=== PATIENT | male | born 1940 | race Caucasian/White ===

== ENCOUNTER 2018-08-12 09:35 | Day surgery (SDC) | payer MEDICARE, OTHER ==
[2018-08-12] VITALS (12 sets, daily range): BP systolic 118–161; BP diastolic 56–76
[~2018-08-12] VITALS: Ht 182.9 cm; Wt 86.3 kg
[2018-08-12] MEDS ORDERED: LORazepam 0.5 MG tablet PO PRN (10:20)
[2018-08-12] MEDS ORDERED: normal saline 1000ml 1,000 ML IV SCH (10:20)
[2018-08-12] MEDS ORDERED: diphenhydrAMINE 25mg capsule PO PRN (10:20)
[2018-08-12 10:35] LABS: BASOPHILS % (AUTO) 0.3 % (0-1); EOSINOPHILS # (AUTO) 0.4 X10'3 (0-0.9); EOSINOPHILS % (AUTO) 6.8 % (0-6); HEMATOCRIT 37.1 % (42.0-52.0); HEMOGLOBIN 12.7 g/dl (14.0-17.9); LYMPHOCYTES # (AUTO) 1.2 X10'3 (1.1-4.8); MEAN CORPUSCULAR HEMOGLOBIN 31.7 PG (27.0-31.0); MEAN CORPUSCULAR HGB CONC 34.3 % (33.0-36.5); MEAN CORPUSCULAR VOLUME 92.6 FL (78-98); MONOCYTES # (AUTO) 0.6 X10'3 (0-0.9); MONOCYTES % (AUTO) 9.6 % (2-12); NEUTROPHILS # (AUTO) 4.2 X10'3 (1.8-7.7); NEUTROPHILS % (AUTO) 65.3 % (42-75); PLATELET COUNT 177 X10'3 (140-440); RED BLOOD COUNT 4.01 X10'6 (4.70-6.10); RED CELL DISTRIBUTION WIDTH 14.8 % (11.5-14.5); WHITE BLOOD COUNT 6.4 X10'3 (4.5-11.0)
[2018-08-12 10:44] LABS: INR 1.1 INR
[2018-08-12 10:48] LABS: ALBUMIN 3.6 G/DL (3.4-5.0); ANION GAP 6 (8-16); BLOOD UREA NITROGEN 23 MG/DL (7-18); BUN/CREATININE RATIO 18.5 (5.4-32.0); CHLORIDE 103 MMOL/L (99-107); CREATININE 1.24 MG/DL (0.60-1.10); GLUCOSE 127 MG/DL (70-104); POTASSIUM 4.8 MMOL/L (3.5-5.1); SODIUM 137 MMOL/L (135-145); TOTAL CARBON DIOXIDE 28.5 MMOL/L (24-32); eGFR 56 ML/MIN
[2018-08-12] MEDS ORDERED: GABA-532 PO (10:52)
[2018-08-12] MEDS ORDERED: ASPI81TA52 PO (10:53)
[2018-08-12] MEDS ORDERED: OMEP40CA37 PO (10:53)
[2018-08-12] MEDS ORDERED: LOSA50TA21 PO (10:54)
[2018-08-12] MEDS ORDERED: PITA4TAB2 PO (10:55)
[2018-08-12] MEDS ORDERED: AMIO200T40 PO (10:56)
[2018-08-12] MEDS ORDERED: COU4T PO (10:56)
[2018-08-12] MEDS ORDERED: LIDOcaine 1% 30ml preserv. free vial ONE (11:56)
[2018-08-12] MEDS ORDERED: fentaNYL/PF 50MCG/1 ML 2ML syringe ONE (11:56)
[2018-08-12] MEDS ORDERED: midazolam 2 mg/2 ml injection ONE ×2 (11:56→13:00)
[2018-08-12] MEDS ORDERED: iohexol 350MG/ML 100ml bottle IV ONE (11:57)
[2018-08-12] MEDS ORDERED: heparin 1,000 UNITS/NS 500ml 500 ML ONE ×2 (11:57)
[2018-08-12] MEDS ORDERED: iohexol 350 MG/ML 50ML vial IV ONE ×3 (11:57→12:55)
[2018-08-12] MEDS ORDERED: HYDROcodone/acetaminophen 5mg/325mg tablet PO PRN (13:55)
[2018-08-12] MEDS ORDERED: ondansetron/PF 4mg/2ml inj IV PRN (13:55)
[2018-08-12] MEDS ORDERED: HYDROcodone/acetaminophen 10/325mg tab PO PRN (14:00)
[2018-08-12] MEDS ORDERED: OXAZEpam 15mg capsule PO PRN (14:00)
[2018-08-12] MEDS ORDERED: proCHLORperazine 10 MG/2 ml inj IV PRN (14:00)
[2018-08-13] MEDS ORDERED: pneumococcal 23-VAL P-sac vacc 25 mcg/0.5ml vial IMVAC ONE (10:00)
== END 2018-08-12 20:00 | disposition home or self-care (01) ==
LOC: SSTAY O 09:35
PROVIDERS: ATTEND Internal Medicine Cardiovascular Disease
DX: I25.810 Atherosclerosis of coronary artery bypass graft(s) without angina pectoris (principal); I10 Essential (primary) hypertension; I25.5 Ischemic cardiomyopathy; I35.1 Nonrheumatic aortic (valve) insufficiency; I45.19 Other right bundle-branch block; I44.0 Atrioventricular block, first degree; I25.2 Old myocardial infarction; E78.5 Hyperlipidemia, unspecified; J44.9 Chronic obstructive pulmonary disease, unspecified; N40.0 Benign prostatic hyperplasia without lower urinary tract symptoms; Z95.1 Presence of aortocoronary bypass graft; Z23 Encounter for immunization; Z86.74 Personal history of sudden cardiac arrest; Z87.891 Personal history of nicotine dependence; Z90.49 Acquired absence of other specified parts of digestive tract; Z93.3 Colostomy status; Z85.46 Personal history of malignant neoplasm of prostate; Z72.89 Other problems related to lifestyle; Z95.828 Presence of other vascular implants and grafts; Z79.82 Long term (current) use of aspirin; Z79.891 Long term (current) use of opiate analgesic; Z79.01 Long term (current) use of anticoagulants; Z88.1 Allergy status to other antibiotic agents; Z79.899 Other long term (current) drug therapy; Z98.890 Other specified postprocedural states; Z88.8 Allergy status to other drugs, medicaments and biological substances
CPT/HCPCS: 36415; 71046; 80048; 85025; 85610; 90732; 93005; 93459; 93567; 99152; 99153; A4315; A6257; C1769; J1644; J2250; J3010; J3490; J7030; Q9967; 93458; A4620

== ENCOUNTER 2018-09-10 11:07 | Inpatient (IN) | payer MEDICARE, OTHER ==
[~2018-09-10] VITALS: Ht 182.9 cm; Wt 86.7 kg
[2018-09-10] VITALS (21 sets, daily range): BP systolic 147–191; BP diastolic 63–87
[~2018-09-10 11:07] MED LIST: AMIO200T40 PO; ASPI81TA52 PO; COU4T PO; GABA-532 PO; LOSA50TA21 PO; OMEP40CA37 PO; PITA4TAB2 PO
[2018-09-10] MEDS ORDERED: normal saline 1000ml 1,000 ML IV PRN (11:45)
[2018-09-10] MEDS ORDERED: BRIM5DRO2 (12:04)
[2018-09-10] MEDS ORDERED: DIFL5DRO LEFTEYE (12:04)
[2018-09-10 13:15] LABS: BASOPHILS # (AUTO) 0.1 X10'3 (0-0.2); BASOPHILS % (AUTO) 0.7 % (0-1); EOSINOPHILS # (AUTO) 0.5 X10'3 (0-0.9); EOSINOPHILS % (AUTO) 6.4 % (0-6); HEMATOCRIT 42.5 % (42.0-52.0); HEMOGLOBIN 14.2 g/dl (14.0-17.9); LYMPHOCYTES # (AUTO) 1.4 X10'3 (1.1-4.8); LYMPHOCYTES % (AUTO) 19.6 % (21-51); MEAN CORPUSCULAR HEMOGLOBIN 30.9 PG (27.0-31.0); MEAN CORPUSCULAR HGB CONC 33.4 % (33.0-36.5); MEAN CORPUSCULAR VOLUME 92.4 FL (78-98); MEAN PLATELET VOLUME 6.5 FL (7.4-10.4); MONOCYTES # (AUTO) 0.6 X10'3 (0-0.9); MONOCYTES % (AUTO) 7.5 % (2-12); NEUTROPHILS # (AUTO) 4.8 X10'3 (1.8-7.7); NEUTROPHILS % (AUTO) 65.8 % (42-75); PLATELET COUNT 207 X10'3 (140-440); RED CELL DISTRIBUTION WIDTH 14.3 % (11.5-14.5); WHITE BLOOD COUNT 7.4 X10'3 (4.5-11.0)
[2018-09-10 13:17] LABS: ALBUMIN 4.3 G/DL (3.4-5.0); ANION GAP 8 (8-16); BLOOD UREA NITROGEN 20 MG/DL (7-18); BUN/CREATININE RATIO 17.9 (5.4-32.0); CALCIUM 9.6 MG/DL (8.5-10.1); CHLORIDE 102 MMOL/L (99-107); CREATININE 1.12 MG/DL (0.60-1.10); GLUCOSE 107 MG/DL (70-104); POTASSIUM 4.5 MMOL/L (3.5-5.1); SODIUM 139 MMOL/L (135-145); TOTAL CARBON DIOXIDE 29.4 MMOL/L (24-32); eGFR 63 ML/MIN
[2018-09-10 13:20] LABS: INR 1.8 INR; PROTHROMBIN TIME 18.2 SECONDS (9.0-12.0)
[2018-09-10] MEDS ORDERED: heparin 1,000 UNITS/NS 500ml 500 ML ICATH ONE (13:20)
[2018-09-10] MEDS ORDERED: LIDOcaine 1%/PF 5ML 10 MG/ML VIAL SQ ONE (13:20)
[2018-09-10] MEDS ORDERED: fentaNYL/PF 50MCG/1 ML 2ML syringe IV PRN (13:20)
[2018-09-10] MEDS ORDERED: midazolam 2 mg/2 ml injection IV PRN (13:20)
[2018-09-10] MEDS ORDERED: iohexol 300mg/ml 100ml inj. ONE (15:30)
[2018-09-10] MEDS ORDERED: heparin 1,000 UNITS/NS 500ml 500 ML ONE (15:31)
[2018-09-10] MEDS ORDERED: fentaNYL/PF 50MCG/1 ML 2ML syringe ONE (15:51)
[2018-09-10] MEDS ORDERED: ondansetron/PF 4mg/2ml inj ONE (15:51)
[2018-09-10] MEDS ORDERED: ondansetron/PF 4mg/2ml inj IV ONE (16:00)
[2018-09-10] MEDS: normal saline 1000ml 1,000 ML IV SCH (17:43)
[2018-09-10] MEDS ORDERED: ceFAZolin 2gm in dextrose, iso 100 ML IV ONE (20:00)
[2018-09-11] VITALS (16 sets, daily range): BP systolic 123–181; BP diastolic 44–71
[2018-09-11] MEDS: normal saline 1000ml 1,000 ML IV SCH ×2 (05:05→15:22)
[2018-09-11 08:29] LABS: BASOPHILS % (AUTO) 0.4 % (0-1); EOSINOPHILS # (AUTO) 0.2 X10'3 (0-0.9); EOSINOPHILS % (AUTO) 3.9 % (0-6); LYMPHOCYTES # (AUTO) 0.9 X10'3 (1.1-4.8); LYMPHOCYTES % (AUTO) 15.1 % (21-51); MEAN CORPUSCULAR HEMOGLOBIN 31.5 PG (27.0-31.0); MEAN CORPUSCULAR HGB CONC 33.9 % (33.0-36.5); MEAN PLATELET VOLUME 6.3 FL (7.4-10.4); MONOCYTES # (AUTO) 0.6 X10'3 (0-0.9); MONOCYTES % (AUTO) 9.4 % (2-12); NEUTROPHILS # (AUTO) 4.6 X10'3 (1.8-7.7); NEUTROPHILS % (AUTO) 71.2 % (42-75); PRE OP HEMATOCRIT 37.1 % (42.0-52.0); PRE OP HEMOGLOBIN 12.6 g/dL (14.0-17.9); PRE OP PLATELET COUNT 161 X10'3 (140-440); RED BLOOD COUNT 3.99 X10'6 (4.70-6.10); RED CELL DISTRIBUTION WIDTH 14.8 % (11.5-14.5)
[2018-09-11 08:39] LABS: ALBUMIN 3.3 G/DL (3.4-5.0); ALKALINE PHOSPHATASE 100 IU/L (46-116); BLOOD UREA NITROGEN 14 MG/DL (7-18); BUN/CREATININE RATIO 13.9 (5.4-32.0); CALCIUM 8.8 MG/DL (8.5-10.1); CHLORIDE 105 MMOL/L (99-107); CREATININE 1.01 MG/DL (0.60-1.10); PRE OP ALT 23 U/L (30-65); PRE OP ANION GAP 6 (8-16); PRE OP AST 13 U/L (10-37); PRE OP BILIRUB, TOTAL 0.4 MG/DL (0.0-1.0); PRE OP GLUCOSE 86 MG/DL (70-104); PRE OP POTASSIUM 4.4 MMOL/L (3.4-5.1); PRE OP SODIUM 140 MMOL/L (135-145); TOTAL CARBON DIOXIDE 28.9 MMOL/L (24-32); TOTAL PROTEIN 6.7 G/DL (6.4-8.2); eGFR 71 ML/MIN
[2018-09-11 08:51] LABS: INR 1.3 INR; PROTHROMBIN TIME 13.8 SECONDS (9.0-12.0)
[2018-09-11] MEDS ORDERED: sevoflurane 250ml liquid IH ONE ×2 (09:00→12:45)
[2018-09-11] MEDS ORDERED: ceFAZolin 1000mg inj ONE ×3 (09:58→13:36)
[2018-09-11] MEDS ORDERED: furosemide 20 MG/2 ML vial ONE (12:45)
[2018-09-11] MEDS ORDERED: fentaNYL/PF 50MCG/1 ML 2ML syringe ONE ×2 (12:47→13:52)
[2018-09-11] MEDS ORDERED: propofol inj 20 ML IV ONE (13:36)
[2018-09-11] MEDS ORDERED: rocuronium 10mg/ml inj IV ONE (13:36)
[2018-09-11] MEDS ORDERED: LIDOcaine 2% (20mg/ml) 5ml vial ONE (13:36)
[2018-09-11] MEDS: heparin 10,000 units/1 ML INJ ONE ×2 (14:11→14:13)
[2018-09-11] MEDS ORDERED: ondansetron/PF 4mg/2ml inj IV PRN (15:20)
[2018-09-11] MEDS ORDERED: HYDROmorphone inj. 0.5 MG/0.5 ML DISP.SYRIN IV PRN ×2 (15:20→20:45)
[2018-09-11] MEDS ORDERED: morphine 4 MG/ML inj SYRINge IV PRN (15:20)
[2018-09-11] MEDS ORDERED: ringers solution, lacted 1,000 ML IV SCH (15:20)
[2018-09-11] MEDS ORDERED: albumin (Human) 5% 250ml 250 ML IV ONE (16:56)
[2018-09-11] MEDS ORDERED: protamine sulfate 10mg/ml inj. ONE (17:42)
[2018-09-11 17:51] LABS: INR 1.7 INR; PROTHROMBIN TIME 16.9 SECONDS (9.0-12.0)
[2018-09-11 17:56] LABS: PARTIAL THROMBOPLASTIN TIME > 153 SECONDS (22-32)
[2018-09-11] MEDS ORDERED: HYDROmorphone 1 mg/ml syringe IV PRN (18:40)
[2018-09-11] MEDS ORDERED: ePHEDrine 50MG/ML INJ. ONE (18:47)
[2018-09-11] MEDS ORDERED: neostigmine methylsulfate 1 MG/ML 10ml vial ONE (18:47)
[2018-09-11] MEDS ORDERED: glycopyrrolate 0.2mg/ml inj ONE (18:47)
[2018-09-11] MEDS ORDERED: ondansetron/PF 4mg/2ml inj ONE (18:47)
[2018-09-11] MEDS ORDERED: dexamethasone sod phosphate 4mg/ml inj. ONE (18:48)
[2018-09-11] MEDS ORDERED: heparin 1,000unit/ml 10ml vial 10 ML ONE (18:48)
[2018-09-11 19:04] LABS: BASOPHILS % (AUTO) 0.2 % (0-1); EOSINOPHILS # (AUTO) 0.1 X10'3 (0-0.9); EOSINOPHILS % (AUTO) 0.6 % (0-6); HEMATOCRIT 29.4 % (42.0-52.0); HEMOGLOBIN 10.2 g/dl (14.0-17.9); LYMPHOCYTES # (AUTO) 0.7 X10'3 (1.1-4.8); LYMPHOCYTES % (AUTO) 7.4 % (21-51); MEAN CORPUSCULAR HEMOGLOBIN 32.2 PG (27.0-31.0); MEAN CORPUSCULAR HGB CONC 34.7 % (33.0-36.5); MEAN CORPUSCULAR VOLUME 92.9 FL (78-98); MEAN PLATELET VOLUME 6.5 FL (7.4-10.4); MONOCYTES # (AUTO) 0.1 X10'3 (0-0.9); MONOCYTES % (AUTO) 1.4 % (2-12); NEUTROPHILS # (AUTO) 8.2 X10'3 (1.8-7.7); NEUTROPHILS % (AUTO) 90.4 % (42-75); PLATELET COUNT 142 X10'3 (140-440); RED BLOOD COUNT 3.16 X10'6 (4.70-6.10); RED CELL DISTRIBUTION WIDTH 14.4 % (11.5-14.5); WHITE BLOOD COUNT 9.1 X10'3 (4.5-11.0)
[2018-09-11 19:23] LABS: ALANINE AMINOTRANSFERASE 19 U/L (12-78); ALBUMIN 2.6 G/DL (3.4-5.0); ALBUMIN/GLOBULIN RATIO 1.1 (1.1-1.5); ALKALINE PHOSPHATASE 72 IU/L (46-116); ANION GAP 9 (8-16); ASPARTATE AMINO TRANSFERASE 14 U/L (10-37); BILIRUBIN,TOTAL 0.4 MG/DL (0.1-1.0); BLOOD UREA NITROGEN 15 MG/DL (7-18); BUN/CREATININE RATIO 17.2 (5.4-32.0); CALCIUM 7.6 MG/DL (8.5-10.1); CHLORIDE 108 MMOL/L (99-107); CREATININE 0.87 MG/DL (0.60-1.10); GLUCOSE 171 MG/DL (70-104); POTASSIUM 4.3 MMOL/L (3.5-5.1); SODIUM 140 MMOL/L (135-145); TOTAL CARBON DIOXIDE 23.5 MMOL/L (24-32); eGFR 85 ML/MIN
[2018-09-11 19:26] LABS: INR 1.4 INR; PARTIAL THROMBOPLASTIN TIME 33 SECONDS (22-32); PROTHROMBIN TIME 14.7 SECONDS (9.0-12.0)
[2018-09-11] MEDS: potassium CL 20mEq in D5-1/2NS 1,000 ML IV SCH (19:52)
[2018-09-11] MEDS ORDERED: DIFLUPREDNATE 0.05% LEFTEYE SCH (20:00)
[2018-09-11] MEDS ORDERED: OPTH LEFTEYE SCH (20:00)
[2018-09-11] MEDS: ceFOXitin 2 GM ADDvantage bag 100 ML IV SCH (20:29)
[2018-09-11] MEDS: OPTH LEFTEYE SCH ×2 (20:35)
[2018-09-11] MEDS: COMBIGAN LEFTEYE SCH (20:35)
[2018-09-11] MEDS: DUREZOL 0.05% LEFTEYE SCH (20:35)
[2018-09-11] MEDS: gabapentin 300mg capsule PO SCH (20:43)
[2018-09-11 21:13] LABS: MAGNESIUM 1.6 MG/DL (1.5-2.4)
[2018-09-11] MEDS: hydrALAZINE 20mg/ml inj. IV PRN ×2 (21:44→22:45)
[2018-09-11] MEDS ORDERED: HYDROmorphone 1 mg/ml syringe ONE (23:46)
[2018-09-12] VITALS (23 sets, daily range): BP systolic 101–163; BP diastolic 36–80
[2018-09-12] MEDS: HYDROmorphone 1 mg/ml syringe IV PRN ×4 (00:03→17:41)
[2018-09-12] MEDS: ceFOXitin 2 GM ADDvantage bag 100 ML IV SCH ×2 (02:12→08:02)
[2018-09-12 02:47] LABS: ALBUMIN 2.8 G/DL (3.4-5.0); ANION GAP 8 (8-16); BLOOD UREA NITROGEN 17 MG/DL (7-18); CALCIUM 7.8 MG/DL (8.5-10.1); CHLORIDE 108 MMOL/L (99-107); CREATININE 1.06 MG/DL (0.60-1.10); GLUCOSE 219 MG/DL (70-104); POTASSIUM 4.4 MMOL/L (3.5-5.1); SODIUM 141 MMOL/L (135-145); TOTAL CARBON DIOXIDE 25.5 MMOL/L (24-32); eGFR 68 ML/MIN
[2018-09-12 02:48] LABS: BASOPHILS % (AUTO) 0.2 % (0-1); EOSINOPHILS % (AUTO) 0 % (0-6); HEMATOCRIT 28.2 % (42.0-52.0); HEMOGLOBIN 9.9 g/dl (14.0-17.9); LYMPHOCYTES # (AUTO) 0.5 X10'3 (1.1-4.8); LYMPHOCYTES % (AUTO) 5.7 % (21-51); MEAN CORPUSCULAR HEMOGLOBIN 32.5 PG (27.0-31.0); MEAN CORPUSCULAR VOLUME 92.8 FL (78-98); MEAN PLATELET VOLUME 6.5 FL (7.4-10.4); MONOCYTES # (AUTO) 0.8 X10'3 (0-0.9); MONOCYTES % (AUTO) 8.1 % (2-12); NEUTROPHILS # (AUTO) 8.3 X10'3 (1.8-7.7); PLATELET COUNT 159 X10'3 (140-440); RED BLOOD COUNT 3.04 X10'6 (4.70-6.10); RED CELL DISTRIBUTION WIDTH 14.5 % (11.5-14.5); WHITE BLOOD COUNT 9.6 X10'3 (4.5-11.0)
[2018-09-12 02:54] LABS: INR 1.3 INR
[2018-09-12] MEDS: ondansetron/PF 4mg/2ml inj IV PRN ×2 (03:16→21:00)
[2018-09-12] MEDS: normal saline 1000ml 1,000 ML IV SCH ×2 (04:42→17:28)
[2018-09-12] MEDS: potassium CL 20mEq in D5-1/2NS 1,000 ML IV SCH ×3 (05:19→19:57)
[2018-09-12] MEDS ORDERED: warfarin 4mg tablet PO SCH (08:00)
[2018-09-12] MEDS: clopidogrel 75mg tablet PO SCH (08:02)
[2018-09-12] MEDS: COMBIGAN LEFTEYE SCH ×2 (08:02→19:54)
[2018-09-12] MEDS: gabapentin 300mg capsule PO SCH ×2 (08:02→19:56)
[2018-09-12] MEDS: OPTH LEFTEYE SCH ×4 (08:02→19:58)
[2018-09-12] MEDS: DUREZOL 0.05% LEFTEYE SCH ×2 (08:02→19:58)
[2018-09-12] MEDS: amiodarone 200mg tablet PO SCH (08:02)
[2018-09-12 13:46] LABS: ISTAT ANION GAP 11 (8-12); ISTAT BUN 13 mg/dL (6-19); ISTAT CL 106 mmol/L (99-107); ISTAT CREATININE 0.8 mg/dL (0.8-1.3); ISTAT GLUCOSE 118 mg/dL (70-104); ISTAT HGB 8.5 g/dl (14.0-18.0); ISTAT Hct 25 %PCV (42-52); ISTAT IONIZED CALCIUM 1.17 mmol/L (1.03-1.32); ISTAT K 4.2 mmol/L (3.5-5.1); ISTAT NA 140 mmol/L (135-145); ISTAT TOTAL CO2 23 mmol/L (24-32); ISTAT eGFR > 90 ML/MIN; POC BUN/CREATININE RATIO 16.3 (5.4-32.0)
[2018-09-12] MEDS: warfarin 4mg tablet PO SCH (19:56)
[2018-09-12] MEDS: HYDROcodone/acetaminophen 10/325mg tab PO PRN (21:00)
[2018-09-12] MEDS: acetaminophen 325mg tablet PO PRN (23:24)
[2018-09-13] VITALS (16 sets, daily range): BP systolic 111–178; BP diastolic 36–94
[2018-09-13 02:38] LABS: BASOPHILS % (AUTO) 0.1 % (0-1); EOSINOPHILS % (AUTO) 0.3 % (0-6); HEMATOCRIT 22.6 % (42.0-52.0); HEMOGLOBIN 7.6 g/dl (14.0-17.9); LYMPHOCYTES # (AUTO) 0.8 X10'3 (1.1-4.8); LYMPHOCYTES % (AUTO) 11.1 % (21-51); MEAN CORPUSCULAR HEMOGLOBIN 31.2 PG (27.0-31.0); MEAN CORPUSCULAR HGB CONC 33.4 % (33.0-36.5); MEAN CORPUSCULAR VOLUME 93.4 FL (78-98); MEAN PLATELET VOLUME 6.2 FL (7.4-10.4); MONOCYTES # (AUTO) 1.1 X10'3 (0-0.9); MONOCYTES % (AUTO) 14.5 % (2-12); NEUTROPHILS # (AUTO) 5.7 X10'3 (1.8-7.7); PLATELET COUNT 122 X10'3 (140-440); RED BLOOD COUNT 2.42 X10'6 (4.70-6.10); RED CELL DISTRIBUTION WIDTH 15.6 % (11.5-14.5); WHITE BLOOD COUNT 7.6 X10'3 (4.5-11.0)
[2018-09-13 02:46] LABS: ALBUMIN 2.4 G/DL (3.4-5.0); ANION GAP 6 (8-16); BLOOD UREA NITROGEN 14 MG/DL (7-18); BUN/CREATININE RATIO 13.5 (5.4-32.0); CALCIUM 7.6 MG/DL (8.5-10.1); CHLORIDE 106 MMOL/L (99-107); CREATININE 1.04 MG/DL (0.60-1.10); GLUCOSE 165 MG/DL (70-104); POTASSIUM 4.7 MMOL/L (3.5-5.1); SODIUM 138 MMOL/L (135-145); TOTAL CARBON DIOXIDE 26.3 MMOL/L (24-32); eGFR 69 ML/MIN
[2018-09-13] MEDS: potassium CL 20mEq in D5-1/2NS 1,000 ML IV SCH (02:52)
[2018-09-13] MEDS: HYDROcodone/acetaminophen 10/325mg tab PO PRN ×3 (02:53→20:01)
[2018-09-13 03:00] LABS: INR 1.3 INR; PROTHROMBIN TIME 13.6 SECONDS (9.0-12.0)
[2018-09-13] MEDS: normal saline 1000ml 1,000 ML IV SCH (07:22)
[2018-09-13] MEDS: gabapentin 300mg capsule PO SCH ×2 (08:26→20:00)
[2018-09-13] MEDS: clopidogrel 75mg tablet PO SCH (08:26)
[2018-09-13] MEDS: amiodarone 200mg tablet PO SCH (08:27)
[2018-09-13] MEDS: DUREZOL 0.05% LEFTEYE SCH ×2 (08:31→19:59)
[2018-09-13] MEDS: COMBIGAN LEFTEYE SCH ×2 (08:31→19:59)
[2018-09-13] MEDS: OPTH LEFTEYE SCH ×4 (08:31→19:59)
[2018-09-13] MEDS: ondansetron/PF 4mg/2ml inj IV PRN ×2 (11:11→20:00)
[2018-09-13] MEDS: warfarin 4mg tablet PO SCH (20:00)
[2018-09-14] MEDS: HYDROcodone/acetaminophen 10/325mg tab PO PRN ×2 (00:11→18:21)
[2018-09-14 05:16] LABS: INR 1.3 INR; PROTHROMBIN TIME 13.2 SECONDS (9.0-12.0)
[2018-09-14 05:19] LABS: BASOPHILS % (AUTO) 0.3 % (0-1); EOSINOPHILS # (AUTO) 0.2 X10'3 (0-0.9); EOSINOPHILS % (AUTO) 2.8 % (0-6); HEMATOCRIT 22.5 % (42.0-52.0); HEMOGLOBIN 7.6 g/dl (14.0-17.9); LYMPHOCYTES # (AUTO) 1.1 X10'3 (1.1-4.8); LYMPHOCYTES % (AUTO) 14.2 % (21-51); MEAN CORPUSCULAR HEMOGLOBIN 31.5 PG (27.0-31.0); MEAN CORPUSCULAR HGB CONC 33.8 % (33.0-36.5); MEAN CORPUSCULAR VOLUME 93.1 FL (78-98); MEAN PLATELET VOLUME 6.6 FL (7.4-10.4); MONOCYTES # (AUTO) 0.8 X10'3 (0-0.9); MONOCYTES % (AUTO) 10.5 % (2-12); NEUTROPHILS # (AUTO) 5.5 X10'3 (1.8-7.7); NEUTROPHILS % (AUTO) 72.2 % (42-75); PLATELET COUNT 142 X10'3 (140-440); RED BLOOD COUNT 2.42 X10'6 (4.70-6.10); RED CELL DISTRIBUTION WIDTH 15.3 % (11.5-14.5); WHITE BLOOD COUNT 7.6 X10'3 (4.5-11.0)
[2018-09-14 05:28] LABS: ALBUMIN 2.6 G/DL (3.4-5.0); ANION GAP 6 (8-16); BLOOD UREA NITROGEN 13 MG/DL (7-18); BUN/CREATININE RATIO 11.4 (5.4-32.0); CALCIUM 8.2 MG/DL (8.5-10.1); CHLORIDE 103 MMOL/L (99-107); CREATININE 1.14 MG/DL (0.60-1.10); GLUCOSE 131 MG/DL (70-104); POTASSIUM 4.6 MMOL/L (3.5-5.1); SODIUM 135 MMOL/L (135-145); TOTAL CARBON DIOXIDE 26.1 MMOL/L (24-32); eGFR 62 ML/MIN
[2018-09-14 07:04] VITALS: BP 134/61
[2018-09-14] MEDS: clopidogrel 75mg tablet PO SCH (08:18)
[2018-09-14] MEDS: amiodarone 200mg tablet PO SCH (08:18)
[2018-09-14] MEDS: gabapentin 300mg capsule PO SCH ×2 (08:18→20:48)
[2018-09-14] MEDS: COMBIGAN LEFTEYE SCH ×2 (08:19→20:47)
[2018-09-14] MEDS: OPTH LEFTEYE SCH ×4 (08:19→20:47)
[2018-09-14] MEDS: DUREZOL 0.05% LEFTEYE SCH ×2 (08:20→20:47)
[2018-09-14] MEDS: ondansetron/PF 4mg/2ml inj IV PRN (09:39)
[2018-09-14 11:00] VITALS: BP 177/61
[2018-09-14] MEDS: hydrALAZINE 20mg/ml inj. IV PRN (12:43)
[2018-09-14] MEDS ORDERED: magnesium citrate 296ml oral solution PO ONE (16:55)
[2018-09-14 20:00] VITALS: BP 132/51
[2018-09-14] MEDS ORDERED: magnesium hydroxide 30ml (MOM) UD suspension PO ONE (20:00)
[2018-09-14] MEDS: warfarin 4mg tablet PO SCH (20:48)
[2018-09-14] MEDS: ceFOXitin 2 GM ADDvantage bag 100 ML IV SCH (20:48)
[2018-09-14 22:19] LABS: CLARITY,URINE CLEAR (Clear); COLOR,URINE YELLOW (Yellow); GLUCOSE, URINE NEGATIVE (Neg); KETONES,URINE NEGATIVE (Neg); LEUKOCYTE ESTERASE ,URINE NEGATIVE (Neg); NITRITES, URINE NEGATIVE (Neg); OCCULT BLOOD,URINE TRACE-LYSED (Neg); PROTEIN,URINE TRACE mg/dl (Neg); UROBILINOGEN,URINE 0.2 E.U/dL (0.2-1.0)
[2018-09-14 22:28] LABS: UA COLLECTION TYPE VOIDED
[2018-09-14 22:29] LABS: BACTERIA,URINE NONE SEEN /HPF (Neg); RBC,URINE NONE SEEN /HPF (0-2); SQUAMOUS EPITHELIAL CELL,UR NONE SEEN /LPF (FEW); WBC,URINE NONE SEEN /HPF (0-4)
[2018-09-14 23:30] VITALS: BP 117/54
[2018-09-15] MEDS: HYDROcodone/acetaminophen 10/325mg tab PO PRN ×3 (00:06→21:22)
[2018-09-15] MEDS: ceFOXitin 2 GM ADDvantage bag 100 ML IV SCH ×2 (02:02→08:25)
[2018-09-15 05:37] LABS: BASOPHILS % (AUTO) 0.5 % (0-1); EOSINOPHILS # (AUTO) 0.2 X10'3 (0-0.9); HEMOGLOBIN 7.4 g/dl (14.0-17.9); LYMPHOCYTES # (AUTO) 1.3 X10'3 (1.1-4.8); LYMPHOCYTES % (AUTO) 17.4 % (21-51); MEAN CORPUSCULAR HEMOGLOBIN 31.7 PG (27.0-31.0); MEAN CORPUSCULAR HGB CONC 34.2 % (33.0-36.5); MEAN CORPUSCULAR VOLUME 92.9 FL (78-98); MEAN PLATELET VOLUME 6.8 FL (7.4-10.4); MONOCYTES # (AUTO) 0.8 X10'3 (0-0.9); MONOCYTES % (AUTO) 10.7 % (2-12); NEUTROPHILS # (AUTO) 5.2 X10'3 (1.8-7.7); NEUTROPHILS % (AUTO) 68.4 % (42-75); PLATELET COUNT 146 X10'3 (140-440); RED BLOOD COUNT 2.32 X10'6 (4.70-6.10); RED CELL DISTRIBUTION WIDTH 15.2 % (11.5-14.5); WHITE BLOOD COUNT 7.6 X10'3 (4.5-11.0)
[2018-09-15 05:53] LABS: INR 1.2 INR; PROTHROMBIN TIME 12.5 SECONDS (9.0-12.0)
[2018-09-15 06:01] LABS: HEMATOCRIT 21.5 % (42.0-52.0)
[2018-09-15 06:06] LABS: ALBUMIN 2.3 G/DL (3.4-5.0); ANION GAP 6 (8-16); BLOOD UREA NITROGEN 16 MG/DL (7-18); BUN/CREATININE RATIO 13.6 (5.4-32.0); CHLORIDE 103 MMOL/L (99-107); CREATININE 1.18 MG/DL (0.60-1.10); GLUCOSE 120 MG/DL (70-104); POTASSIUM 4.9 MMOL/L (3.5-5.1); SODIUM 136 MMOL/L (135-145); TOTAL CARBON DIOXIDE 27.3 MMOL/L (24-32); eGFR 60 ML/MIN
[2018-09-15 07:20] VITALS: BP 152/61
[2018-09-15] MEDS: clopidogrel 75mg tablet PO SCH (08:23)
[2018-09-15] MEDS: gabapentin 300mg capsule PO SCH ×2 (08:23→20:41)
[2018-09-15] MEDS: amiodarone 200mg tablet PO SCH (08:23)
[2018-09-15] MEDS: COMBIGAN LEFTEYE SCH ×2 (08:24→20:40)
[2018-09-15] MEDS: OPTH LEFTEYE SCH ×4 (08:24→20:40)
[2018-09-15] MEDS: DUREZOL 0.05% LEFTEYE SCH ×2 (08:24→20:40)
[2018-09-15 11:39] VITALS: BP 150/70
[2018-09-15] MEDS: ferrous sulfate 325mg tablet PO SCH ×2 (14:48→20:41)
[2018-09-15] MEDS: ondansetron/PF 4mg/2ml inj IV PRN ×2 (16:03→21:02)
[2018-09-15 18:50] VITALS: BP 163/61
[2018-09-15] MEDS: warfarin 4mg tablet PO SCH (20:48)
[2018-09-16] VITALS: BP 130/59
[2018-09-16] MEDS: ondansetron/PF 4mg/2ml inj IV PRN ×2 (01:12→13:37)
[2018-09-16 06:27] LABS: ALBUMIN 2.2 G/DL (3.4-5.0); ANION GAP 6 (8-16); BLOOD UREA NITROGEN 16 MG/DL (7-18); CALCIUM 7.8 MG/DL (8.5-10.1); CHLORIDE 98 MMOL/L (99-107); CREATININE 0.94 MG/DL (0.60-1.10); GLUCOSE 130 MG/DL (70-104); POTASSIUM 4.4 MMOL/L (3.5-5.1); SODIUM 132 MMOL/L (135-145); TOTAL CARBON DIOXIDE 28.5 MMOL/L (24-32); eGFR 78 ML/MIN
[2018-09-16 06:28] LABS: BASOPHILS % (AUTO) 0.5 % (0-1); EOSINOPHILS # (AUTO) 0.6 X10'3 (0-0.9); EOSINOPHILS % (AUTO) 9.8 % (0-6); LYMPHOCYTES # (AUTO) 1.1 X10'3 (1.1-4.8); LYMPHOCYTES % (AUTO) 17.4 % (21-51); MEAN CORPUSCULAR HEMOGLOBIN 31.7 PG (27.0-31.0); MEAN CORPUSCULAR HGB CONC 33.9 % (33.0-36.5); MEAN CORPUSCULAR VOLUME 93.4 FL (78-98); MONOCYTES # (AUTO) 0.7 X10'3 (0-0.9); MONOCYTES % (AUTO) 10.6 % (2-12); NEUTROPHILS # (AUTO) 3.9 X10'3 (1.8-7.7); NEUTROPHILS % (AUTO) 61.7 % (42-75); PLATELET COUNT 182 X10'3 (140-440); RED CELL DISTRIBUTION WIDTH 15.1 % (11.5-14.5); WHITE BLOOD COUNT 6.3 X10'3 (4.5-11.0)
[2018-09-16 06:33] LABS: HEMATOCRIT 20.5 % (42.0-52.0)
[2018-09-16 06:36] LABS: INR 1.3 INR; PROTHROMBIN TIME 13.2 SECONDS (9.0-12.0)
[2018-09-16 07:30] VITALS: BP 163/73
[2018-09-16] MEDS: DUREZOL 0.05% LEFTEYE SCH ×2 (08:45→19:41)
[2018-09-16] MEDS: OPTH LEFTEYE SCH ×4 (08:45→19:41)
[2018-09-16] MEDS: COMBIGAN LEFTEYE SCH ×2 (08:45→19:25)
[2018-09-16] MEDS: ferrous sulfate 325mg tablet PO SCH ×2 (08:46→19:25)
[2018-09-16] MEDS: amiodarone 200mg tablet PO SCH (08:46)
[2018-09-16] MEDS: gabapentin 300mg capsule PO SCH ×2 (08:47→19:24)
[2018-09-16] MEDS: clopidogrel 75mg tablet PO SCH (08:47)
[2018-09-16] MEDS: HYDROcodone/acetaminophen 10/325mg tab PO PRN ×3 (08:49→14:43)
[2018-09-16 11:00] VITALS: BP 149/61
[2018-09-16 19:30] VITALS: BP 179/77
[2018-09-16] MEDS: acetaminophen 325mg tablet PO PRN (19:39)
[2018-09-16] MEDS: warfarin 4mg tablet PO SCH (19:40)
[2018-09-16 23:30] VITALS: BP 154/65
[2018-09-17] MEDS: acetaminophen 325mg tablet PO PRN ×3 (02:05→21:16)
[2018-09-17 06:20] LABS: INR 1.3 INR; PROTHROMBIN TIME 13.4 SECONDS (9.0-12.0)
[2018-09-17 07:01] VITALS: BP 157/71
[2018-09-17] MEDS: OPTH LEFTEYE SCH ×4 (07:33→20:31)
[2018-09-17] MEDS: COMBIGAN LEFTEYE SCH ×2 (07:33→20:22)
[2018-09-17] MEDS: amiodarone 200mg tablet PO SCH (07:34)
[2018-09-17] MEDS: gabapentin 300mg capsule PO SCH ×2 (07:35→20:19)
[2018-09-17] MEDS: ferrous sulfate 325mg tablet PO SCH ×2 (07:35→20:19)
[2018-09-17] MEDS: clopidogrel 75mg tablet PO SCH (07:36)
[2018-09-17] MEDS: DUREZOL 0.05% LEFTEYE SCH ×2 (08:00→20:31)
[2018-09-17 11:00] VITALS: BP 140/57
[2018-09-17 12:29] VITALS: BP 159/71
[2018-09-17 18:30] VITALS: BP 152/54
[2018-09-17] MEDS: warfarin 4mg tablet PO SCH (20:19)
[2018-09-18] VITALS: BP 131/52
[2018-09-18 06:54] LABS: INR 1.5 INR
[2018-09-18] MEDS: acetaminophen 325mg tablet PO PRN (07:22)
[2018-09-18 08:00] VITALS: BP 144/67
[2018-09-18] MEDS: ferrous sulfate 325mg tablet PO SCH (08:49)
[2018-09-18] MEDS: gabapentin 300mg capsule PO SCH ×2 (08:49→19:19)
[2018-09-18] MEDS: amiodarone 200mg tablet PO SCH (08:49)
[2018-09-18] MEDS: DUREZOL 0.05% LEFTEYE SCH (08:50)
[2018-09-18] MEDS: OPTH LEFTEYE SCH ×2 (08:50→08:58)
[2018-09-18] MEDS: COMBIGAN LEFTEYE SCH (08:58)
[2018-09-18 11:00] VITALS: BP 127/57
[2018-09-18 19:00] VITALS: BP 151/61
[2018-09-18] MEDS: warfarin 4mg tablet PO SCH (19:19)
== END 2018-09-18 19:30 | disposition home health service (06) | DRG 253 ==
LOC: SSTAY O 11:07 → SUR 3N 16:43 → EDSTATUS 09-11 12:30 → ICU 2S 09-11 16:34 → SUR 3N 09-13 15:35
PROVIDERS: ADMIT Surgery; ATTEND Surgery
PROC: B41C1ZZ Fluoroscopy of Pelvic Arteries using Low Osmolar Contrast (ICD-10-PCS; 2018-09-10)
PROC: B41F1ZZ Fluoroscopy of Right Lower Extremity Arteries using Low Osmolar Contrast (ICD-10-PCS; 2018-09-10)
PROC: 04UK0JZ Supplement Right Femoral Artery with Synthetic Substitute, Open Approach (ICD-10-PCS; 2018-09-11)
PROC: 041K0JL Bypass Right Femoral Artery to Popliteal Artery with Synthetic Substitute, Open Approach (ICD-10-PCS; 2018-09-11)
PROC: 041K09L Bypass Right Femoral Artery to Popliteal Artery with Autologous Venous Tissue, Open Approach (ICD-10-PCS; 2018-09-11)
PROC: 06BP0ZZ Excision of Right Saphenous Vein, Open Approach (ICD-10-PCS; 2018-09-11)
PROC: 02HV33Z Insertion of Infusion Device into Superior Vena Cava, Percutaneous Approach (ICD-10-PCS; 2018-09-11)
PROC: 04CK0ZZ Extirpation of Matter from Right Femoral Artery, Open Approach (ICD-10-PCS; principal; 2018-09-11 12:45)
PROC: 3E02340 Introduction of Influenza Vaccine into Muscle, Percutaneous Approach (ICD-10-PCS; 2018-09-17)
DX: I70.211 Atherosclerosis of native arteries of extremities with intermittent claudication, right leg (principal); D62 Acute posthemorrhagic anemia; I25.10 Atherosclerotic heart disease of native coronary artery without angina pectoris; J44.9 Chronic obstructive pulmonary disease, unspecified; Z95.1 Presence of aortocoronary bypass graft; Z23 Encounter for immunization; Z79.899 Other long term (current) drug therapy; Z79.82 Long term (current) use of aspirin; Z88.8 Allergy status to other drugs, medicaments and biological substances; Z98.49 Cataract extraction status, unspecified eye; Z87.891 Personal history of nicotine dependence
CPT/HCPCS: 36245; 36415; 71045; 72170; 75710; 80047; 80048; 80053; 81001; 83735; 85025; 85610; 85730; 86885; 86920; 87070; 88304; 88341; 88342; 88360; 93005; 93922; 93926; 93970; 97110; 97116; 97162; 97530; A6255; A6257; A6454; A7000; A9270; C1758; C1768; C1769; C1894; G0378; J0360; J0690; J0694; J1100; J1170; J1644; J1940; J2001; J2405; J2704; J2710; J2720; J3010; J3490; J7030; J7120; P9045; Q9967

== ENCOUNTER → 2018-11-11 | Outpatient (CLI) | payer MEDICARE, OTHER ==
[~2018-11-11] VITALS: Ht 182.9 cm; Wt 83.0 kg
[~2018-11-11] MED LIST changes: -ASPI81TA52 PO; +BRIM5DRO2; +DIFL5DRO LEFTEYE; -OMEP40CA37 PO; +albuterol 2.5 MG/3 ML nebule NEB ONE
[2018-11-11 16:10] LABS: TOTAL HEMOGLOBIN 14.3 G/dl (14.0-18.0)
== END | disposition home or self-care (01) ==
LOC: RT 15:31
PROVIDERS: ATTEND Internal Medicine Cardiovascular Disease
DX: Z51.81 Encounter for therapeutic drug level monitoring (principal); R06.09 Other forms of dyspnea; R05 Cough; F17.210 Nicotine dependence, cigarettes, uncomplicated; J44.9 Chronic obstructive pulmonary disease, unspecified; I25.2 Old myocardial infarction; Z79.899 Other long term (current) drug therapy
CPT/HCPCS: 85018; 94060; 94727; 94729; 94760

== ENCOUNTER 2018-11-19 08:34 | Outpatient (CLI) | payer MEDICARE, OTHER ==
[~2018-11-19 08:34] MED LIST changes: -LOSA50TA21 PO; +LOSA50TA64 PO; -albuterol 2.5 MG/3 ML nebule NEB ONE
== END 2018-11-19 23:59 | disposition home or self-care (01) ==
LOC: VAS 08:34
PROVIDERS: ATTEND Surgery
DX: R60.0 Localized edema (principal); M79.604 Pain in right leg; I10 Essential (primary) hypertension; J44.9 Chronic obstructive pulmonary disease, unspecified; I25.2 Old myocardial infarction; Z87.891 Personal history of nicotine dependence
CPT/HCPCS: 93971